=== PATIENT | female | born 1995 | race Caucasian/White ===

== ENCOUNTER 2017-12-21 10:32 | Emergency (ER) | payer MEDICAID ==
[~2017-12-21] VITALS: Ht 167.6 cm; Wt 104.0 kg
[~2017-12-21 10:32] MED LIST: PREN1TAB79 PO
[2017-12-21] MEDS ORDERED: ondansetron 4mg rapidly disintigrating tab PO ONE (12:05)
[2017-12-21] MEDS ORDERED: BISA-155 PO (12:18)
[2017-12-21] MEDS ORDERED: POLY119P2 PO (12:18)
[2017-12-21 12:27] VITALS: BP 113/66
== END 2017-12-21 12:31 | disposition home or self-care (01) ==
LOC: ER 10:33
DX: O20.0 Threatened abortion (principal); O26.891 Other specified pregnancy related conditions, first trimester; K59.00 Constipation, unspecified; I10 Essential (primary) hypertension; Z3A.01 Less than 8 weeks gestation of pregnancy; Z91.040 Latex allergy status; Z79.899 Other long term (current) drug therapy
CPT/HCPCS: 76801; 99284